=== PATIENT | female | born 1965 | race Hispanic/Latino ===

== ENCOUNTER 2021-12-25 00:42 | Emergency (ER) | payer OTHER ==
[~2021-12-25] VITALS: Ht 152.4 cm; Wt 65.8 kg
== END 2021-12-25 02:06 | disposition home or self-care (01) ==
LOC: FSED 00:51
DX: S63.615A Unspecified sprain of left ring finger, initial encounter (principal); X50.0XXA Overexertion from strenuous movement or load, initial encounter; Y93.K1 Activity, walking an animal
CPT/HCPCS: 99283